=== PATIENT | female | born 1990 | race Caucasian/White ===

== ENCOUNTER 2020-09-14 12:58 | Emergency (ER) | payer OTHER, SELFPAY ==
[2020-09-14 13:10] VITALS: BP 150/86; PULSE 85; RESP 14; TEMP 37.2; O2SAT 99; BMI 28.3
[2020-09-14 13:19] LABS: UTC Strep Screen (Rapid) Negative (Negative)
--- NOTE | 2020-09-14 13:29 | HMH.EDUTC ---
[facility] [place] Clinical Impression: Exposure to COVID-19 virus Sinusitis Qualifiers: Sinusitis location: unspecified location Chronicity: acute Recurrence: non-recurrent Qualified Code(s): J01.90 - Acute sinusitis, unspecified Pharyngitis Qualifiers: Pharyngitis/tonsillitis etiology: unspecified etiology Qualified Code(s): J02.9 - Acute pharyngitis, unspecified Disposition: Home, Self-Care Condition on Discharge: Good Instructions: DI for Sinusitis, Preventing the Spread of Coronavirus Discharge Instructions Additional Instructions: Drink plenty of fluids. Take tylenol for pain or fever. Return if you begin to have difficulty breathing. Follow up with your regular doctor. GO TO THE ER FOR ANY WORSENING SYMPTOMS Prescriptions: Amoxicillin/Potassium Clav [Augmentin 875-125 Tablet] 1 tab PO Q12H 10 Days #20 tab Transmission Status: Received by [id number] Benzonatate [Tessalon Perle 100mg Cap] 100 mg PO TIDP PRN #30 cap PRN Reason: Cough Transmission Status: Received by [id number] Referrals: PCP,No [Primary Care Provider] - Forms: Work/School Release Time of Disposition: 13:43 Medical Decision Making - Medical Records Medical records reviewed: No: I reviewed the patient's medical records. - Peña Inquiry Pt receiving controlled substance: No Vital Signs: 09/14/20 13:10 09/14/20 13:32 Temperature 98.9 F 99 F Temperature Source Oral Pulse Rate 87 Pulse Rate [Right] 85 Respiratory Rate 14 16 Blood Pressure 143/87 H Blood Pressure [Right Arm] 150/86 H Blood Pressure Mean [Right Arm] 107 Blood Pressure Source [Right Arm] Automatic Cuff Blood Pressure Position [Right Arm] Sitting 02 Sat by Pulse Oximetry 99 Oxygen Delivery Method Room Air - Lab Data Lab results reviewed: Yes: I reviewed the patient's lab results. Lab Results 09/14/20 13:18: Strep Scn Rapid Clinic Negative Orders (Tests/Meds): ORDERS Category Date Time Status Strep Screen Confirmation Stat Micro 09/14/20 13:18 Received [facility] [place] - General Stated complaint: sore throat Time Seen by Provider: 09/14/20 13:32 Mode of Arrival: Ambulatory Source of Information: Patient Limitations: No Limitations Description of Symptoms (Recalled from Triage Doc. by RN): pt is having a sore throat, cough, SOSA, low grade fever, and the back of her neck is hurting. 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 HEENT Symptoms (Recalled from RN notes): Yes (sore throat and SOSA) Resp Symptoms (Recalled from RN notes): Yes (dry cough) Skin Symptoms (Recalled from RN notes): No MS Symptoms (Recalled from RN notes): No Functional Status (Recalled from RN notes): na - History of Present Illness Provider Complaint: She is here with complaints of sinus congestion, sore throat, head ache, and feeling bad. She denies any known exposure to covid-19, but she works in a factory around a lot of people. - Related Data Previous Rx's Medication Instructions Recorded Amoxicillin/Potassium Clav 1 tab PO Q12H 10 Days #20 tab 09/14/20 [Augmentin 875-125 Tablet] Benzonatate [Tessalon Perle 100mg 100 mg PO TIDP PRN #30 cap 09/14/20 Cap] Allergies Allergy/AdvReac Type Severity Reaction Status Date / Time No Known Drug Allergies Allergy Unknown -- Verified 09/14/20 13:09 - Worker's Comp Is this a Worker's Comp case?: No [facility] History - Hepatitis A Screen Drug use history?: No High risk sexual behaviors?: No History of sexually transmitted infection?: No Currently employed?: No Childcare worker?: No Do you have indoor plumbing?: No Do you have electricity?: Yes Attestation statement:: This patient has been screened for Hepatitis A risk factors. I have reviewed the patient's past medical history: Yes - Social History Smoking Status: Current every day smoker # Packs/Day (cigarettes): 1 Alcohol Intake: never Occupational Status: employed ROS Obtained: Yes All systems re
[2020-09-14 13:32] VITALS: BP 143/87; PULSE 87; RESP 16; TEMP 37.2
== END 2020-09-14 14:00 | disposition home or self-care (01) ==
PROVIDERS: Emergency Provider Nurse Practitioner Family
DX: Z20.822 Contact with and (suspected) exposure to COVID-19 (principal); J01.90 Acute sinusitis, unspecified; F17.210 Nicotine dependence, cigarettes, uncomplicated
CPT/HCPCS: 87880; 99202; G0463; U0003

== ENCOUNTER 2020-09-26 22:15 | Emergency (ER) | payer OTHER, SELFPAY ==
[2020-09-27 02:16] VITALS: BP 00/00; PULSE 0; RESP 0; TEMP -17.7; TEMP 0
== END 2020-09-27 02:41 | disposition left against medical advice (07) ==
LOC: ER 09-27 02:35
PROVIDERS: Emergency Provider Emergency Medicine
DX: Z53.21 Procedure and treatment not carried out due to patient leaving prior to being seen by health care provider (principal)
CPT/HCPCS: 99211

== ENCOUNTER 2020-09-28 15:05 | Emergency (ER) | payer OTHER, SELFPAY ==
[2020-09-28 15:16] VITALS: BP 154/89; PULSE 98; RESP 20; TEMP 37.2; O2SAT 99; BMI 27.4
--- NOTE | 2020-09-28 15:37 | HMH.EDUTC ---
[facility] [place] Clinical Impression: Sinusitis Qualifiers: Sinusitis location: unspecified location Chronicity: acute Recurrence: non-recurrent Qualified Code(s): J01.90 - Acute sinusitis, unspecified Otitis media Qualifiers: Otitis media type: suppurative Chronicity: acute Laterality: bilateral Recurrence: non-recurrent Spontaneous tympanic membrane rupture: without spontaneous rupture Qualified Code(s): H66.003 - Acute suppurative otitis media without spontaneous rupture of ear drum, bilateral Disposition: Home, Self-Care Condition on Discharge: Good Instructions: Middle Ear Infection, DI for Sinusitis, DI for Vertigo Additional Instructions: Drink plenty of fluids. Take tylenol or ibuprofen for pain or fever. Take the medications as directed. Follow up with your regular doctor. GO TO THE ER FOR ANY WORSENING SYMPTOMS Prescriptions: Meclizine HCl [Antivert 12.5mg tablet] 12.5 mg PO Q6HP PRN #30 tab PRN Reason: Dizziness Transmission Status: Received by [id number] Cefdinir [Omnicef 300mg Capsule] 300 mg PO BID #20 cap Transmission Status: Received by [id number] predniSONE [Prednisone 20mg Tab] 20 mg PO BID 5 Days #10 tab Transmission Status: Received by [id number] Referrals: PCP,No [Primary Care Provider] - Forms: Work/School Release Time of Disposition: 15:49 Medical Decision Making - Medical Records Medical records reviewed: No: I reviewed the patient's medical records. - Peña Inquiry Pt receiving controlled substance: No Vital Signs: 09/28/20 15:16 09/28/20 15:40 Temperature 98.9 F 99 F Temperature Source Oral Pulse Rate 99 H Pulse Rate [Right] 98 H Respiratory Rate 20 19 Blood Pressure 147/92 H Blood Pressure [Right Arm] 154/89 H Blood Pressure Mean [Right Arm] 110 Blood Pressure Source [Right Arm] Automatic Cuff Blood Pressure Position [Right Arm] Sitting 02 Sat by Pulse Oximetry 99 Oxygen Delivery Method Room Air [facility] [place] HPI - General Stated complaint: dizzy possible ear infection Time Seen by Provider: 09/28/20 15:37 Mode of Arrival: Ambulatory Source of Information: Patient Limitations: No Limitations Description of Symptoms (Recalled from Triage Doc. by RN): pt states she was seen a couple weeks ago for a sinus infection and started amoxicillin. she broke out in a rash and had to come off of it. now she complains of vertigo and unable to walk shes so dizzy. she also states she is having R ear pain. HEENT Symptoms (Recalled from RN notes): Yes (R ear pain and dizziness) Resp Symptoms (Recalled from RN notes): No Skin Symptoms (Recalled from RN notes): No MS Symptoms (Recalled from RN notes): No Functional Status (Recalled from RN notes): na - History of Present Illness Provider Complaint: She states that over the past 3 days she has had right ear pain, tenderness behind her right ear and dizziness with certain movements of her head. She states that lying back and raising up triggers her dizziness. - Related Data Previous Rx's Medication Instructions Recorded Cefdinir [Omnicef 300mg Capsule] 300 mg PO BID #20 cap 09/28/20 Meclizine HCl [Antivert 12.5mg 12.5 mg PO Q6HP PRN #30 tab 09/28/20 tablet] predniSONE [Prednisone 20mg 20 mg PO BID 5 Days #10 tab 09/28/20 Tab] Allergies Allergy/AdvReac Type Severity Reaction Status Date / Time No Known Drug Allergies Allergy Unknown -- Verified 09/14/20 13:09 - Worker's Comp Is this a Worker's Comp case?: No [facility] History - Hepatitis A Screen Drug use history?: No High risk sexual behaviors?: No History of sexually transmitted infection?: No Currently employed?: No Childcare worker?: No Do you have indoor plumbing?: Yes Do you have electricity?: Yes Attestation statement:: This patient has been screened for Hepatitis A risk factors. I have reviewed the patient's past medical history: Yes - Social History Smoking Status: Never smoker
[2020-09-28 15:40] VITALS: BP 147/92; PULSE 99; RESP 19; TEMP 37.2
== END 2020-09-28 15:57 | disposition home or self-care (01) ==
PROVIDERS: Emergency Provider Nurse Practitioner Family
DX: J01.90 Acute sinusitis, unspecified (principal); H66.003 Acute suppurative otitis media without spontaneous rupture of ear drum, bilateral
CPT/HCPCS: 99202; G0463

== ENCOUNTER 2022-03-15 15:44 | Emergency (ER) | payer OTHER, SELFPAY ==
--- NOTE | 2022-03-15 16:05 | EXP.UTC ---
Discharge Plan Disposition Patient Disposition: Home, Self-Care Condition: Good Prescriptions Prescriptions: New azithromycin [Zithromax] 250 mg tablet 250 mg PO UD DOSE PK Qty: 6 0RF Rx Instructions: Take two (2) tablets today, then one (1) tablet days #2 thru #5 yiltqmxxrvqldum-iarcofugv-MC [Bromfed DM] 2-30-10 mg/5 mL Syrup 5 ml PO Q6H PRN (Reason: Cough) Qty: 240 0RF ondansetron 4 mg Tablet,Disintegrating 4 mg PO Q8H PRN (Reason: Nausea) Qty: 12 0RF Referrals Follow up/Referrals: Provider,Referral, MD [Primary Care Provider] - See instructions Activity Restrictions/Add. Instructions Additional Instructions/Restrictions: Drink plenty of fluids. Take tylenol or ibuprofen for pain or fever. Take the medications as directed. Follow up with your regular doctor. GO TO THE ER FOR ANY WORSENING SYMPTOMS Quarantine until you know the results of your covid-19 test. Notify your school or workplace of your results and follow their instructions regarding return to work/school. Clinical Impressions Clinical Impression: Pharyngitis, Exposure to COVID-19 virus Stand Alone Forms Stand Alone Forms: Work/School Release Instructions Patient Instructions: Sinusitis, DI for Sinusitis, Coronavirus Disease 2019, Preventing the Spread of Coronavirus Discharge Instructions Discharge ED Provider: Devin Lucio [facility] [place] General Stated complaint: stomach ache and sore throat Time Seen by Provider: 03/15/22 16:12 History of Present Illness Provider Complaint: She states that she has had a sore throat, chills, and she has felt bad for the past 2 days. Related Data Previous Rx's Medication Instructions Recorded azithromycin 250 mg tablet 250 mg PO UD DOSE PK #6 tabs 03/15/22 (Zithromax) kjatocaztgmhpmw-egsyolsynhklhqa-EL 5 ml PO Q6H PRN Cough #240 mL 03/15/22 2 mg-30 mg-10 mg/5 mL oral syrup (Bromfed DM) ondansetron 4 mg disintegrating 4 mg PO Q8H PRN Nausea #12 tabs 03/15/22 tablet Allergies Allergy/AdvReac Type Severity Reaction Status Date / Time amoxicillin Allergy Verified 03/15/22 16:12 PFSH [facility] Social History Smoking Status: Current every day smoker alcohol intake: never current occupational status: employed Travel in the last 8 weeks: None ROS Obtained: Yes All systems reviewed & no additional complaints except as documented Constitutional Constitutional: Reports chills and Reports fever(s) Eyes Eyes: Denies eye discharge ENT Ears, Nose, Mouth, and Throat: Reports as per HPI Cardiovascular Cardiovascular: Denies chest pain Respiratory Respiratory: Denies chest congestion and Reports cough Gastrointestinal Gastrointestingal: Reports nausea; Denies abdominal pain, constipation, cramping, diarrhea or vomiting Musculoskeletal Musculoskeletal: Denies arthralgias Integumentary/Breasts Skin/Breast: Denies rash Neurologic Neurologic: Denies paresthesias Physical Exam General General appearance: alert and in no apparent distress Head Head exam: atraumatic, normocephalic and normal inspection Eye Eye exam: Present normal appearance, PERRL and EOMI ENT ENT exam: Present mucous membranes moist and normal external ear exam Expanded ENT Exam TM/Canal exam: Bilateral TM: erythema and bulging Nose exam: Absent sinus tenderness Mouth exam: Present normal external inspection; Absent drooling Teeth exam: Present normal inspection Throat exam: Present tonsillar erythema, tonsillomegaly and tonsillar exudate Neck Neck exam: Present normal inspection, full ROM and trachea midline; Absent tenderness, meningismus or lymphadenopathy Chest Chest inspection: Present normal inspection and symmetric chest wall rise; Absent tenderness Respiratory Respiratory exam: Present normal lung sounds bilaterally; Absent respiratory distress, wheezes or stridor Cardiovascular Cardiovascular exam: Present regular rate and
[2022-03-15 16:08] VITALS: BP 135/93; PULSE 83; RESP 16; TEMP 37.4; O2SAT 100; BMI 29.9
[2022-03-15 16:19] LABS: UTC Strep Screen (Rapid) Negative (Negative)
[2022-03-15 16:44] VITALS: BP 135/93; PULSE 83; RESP 16; TEMP 37.4
== END 2022-03-15 16:44 | disposition home or self-care (01) ==
PROVIDERS: Emergency Provider Nurse Practitioner Family
DX: Z20.822 Contact with and (suspected) exposure to COVID-19 (principal); J02.9 Acute pharyngitis, unspecified; R10.9 Unspecified abdominal pain
CPT/HCPCS: 87880; 99212; C9803; G0463; U0003; U0005

== ENCOUNTER 2022-05-16 08:47 | Emergency (ER) | payer OTHER, SELFPAY ==
[2022-05-16 09:20] VITALS: BP 133/88; PULSE 86; RESP 20; TEMP 37.1; O2SAT 99; BMI 31.1
[2022-05-16 09:39] LABS: UTC Influenza A Antigen Positive (Negative); UTC Influenza B Antigen Negative (Negative)
[2022-05-16 09:48] VITALS: BP 133/88; PULSE 86; RESP 20; TEMP 37.1; O2SAT 99
--- NOTE | 2022-05-16 10:00 | EXP.UTC ---
Discharge Plan Disposition Patient Disposition: Home, Self-Care Condition: Good Prescriptions Prescriptions: New oseltamivir [Tamiflu] 75 mg capsule 75 mg PO BID 5 Days Qty: 10 0RF No Action azithromycin [Zithromax] 250 mg tablet 250 mg PO UD DOSE PK Qty: 6 0RF Rx Instructions: Take two (2) tablets today, then one (1) tablet days #2 thru #5 iukmtyzokqxvllg-yonuudhqe-IF [Bromfed DM] 2-30-10 mg/5 mL Syrup 5 ml PO Q6H PRN (Reason: Cough) Qty: 240 0RF ondansetron 4 mg Tablet,Disintegrating 4 mg PO Q8H PRN (Reason: Nausea) Qty: 12 0RF Referrals Follow up/Referrals: Provider,Referral, MD [Primary Care Provider] - See instructions Activity Restrictions/Add. Instructions Additional Instructions/Restrictions: Start Tamiflu today if you are going to take it. Discussed risk and possible benefits. Lots of rest Increase Fluids water, Gatorade, powerade, pedialyte,if /toddler/child Alternate Tylenol and / or ibuprofen as discussed for fever, aches, chills Follow up IMMEDIATELY with your family doctor for new or worsening Symptoms OR no noticeable improvement over the next 48-72 hours, 911 for difficulty or breathing You or your child area contagious until no fever, aches, chills for 24 hours with medication for symptoms Help Prevent the spread of influenza: ?Wash your hands often. Use soap and water. Wash your hands after you use the bathroom, change a child's diapers, or sneeze. Wash your hands before you prepare or eat food. Use gel hand cleanser that has 60% alcohol, when soap and water are not available. Do not touch your eyes, nose, or mouth unless you have washed your hands first. Cover your mouth when you sneeze or cough. Cough into a tissue or the bend of your arm. If you use a tissue, throw it away immediately and wash your hands. Clean shared items with a germ-killing book cleaner. Clean table surfaces, doorknobs, and light switches. Do not share towels, silverware, and dishes with people who are sick. Wash bed sheets, towels, silverware, and dishes with soap and water. Wear a mask over your mouth and nose if you are sick. The face mask may help protect others from becoming infected with the flu. Wear the mask when in common areas of your home or if you seek care with a healthcare provider. Stay away from others if you are sick. Stay at home until 24 hours after your fever and symptoms are gone. Clinical Impressions Clinical Impression: Influenza A Stand Alone Forms Stand Alone Forms: Work/School Release Instructions Patient Instructions: DI for Influenza -- Adult, Oseltamivir Discharge ED Provider: Shelley Stahl [facility] [place] HPI General Stated complaint: Fever, chills, dry cough Mode of Arrival: Ambulatory Source of Information: Patient Limitations: No Limitations Time Seen by Provider: 05/16/22 10:03 Description of Symptoms (Recalled from Triage Doc. by RN): PATIENT C/O COLD CHILLS, FEVER, FATIGUE, LOSS OF APPETITE, AND DRY COUGH THAT STARTED SATURDAY NIGHT HEENT Symptoms (Recalled from RN notes): No Resp Symptoms (Recalled from RN notes): Yes Skin Symptoms (Recalled from RN notes): No MS Symptoms (Recalled from RN notes): No Functional Status (Recalled from RN notes): WNL History of Present Illness Provider Complaint: Patient states that she started feeling bad late Saturday night States that she has been having body aches, chills, fatigue fever and dry cough States that she has continued to not feel well so today she came in to get checked Related Data Previous Rx's Medication Instructions Recorded azithromycin 250 mg tablet 250 mg PO UD DOSE PK #6 tabs 03/15/22 (Zithromax) xukgaqxhubxnaji-nubagraphkozweg-HD 5 ml PO Q6H PRN Cough #240 mL 03/15/22 2 mg-30 mg-10 mg/5 mL oral syrup (Bromfed DM) ondansetron 4 mg disintegrating 4
== END 2022-05-16 10:08 | disposition home or self-care (01) ==
PROVIDERS: Emergency Provider Nurse Practitioner
DX: J10.1 Influenza due to other identified influenza virus with other respiratory manifestations (principal); R11.0 Nausea; R50.9 Fever, unspecified; R05.9 Cough, unspecified; R53.82 Chronic fatigue, unspecified; M79.10 Myalgia, unspecified site; D64.9 Anemia, unspecified; F17.210 Nicotine dependence, cigarettes, uncomplicated; Z79.899 Other long term (current) drug therapy; Z88.0 Allergy status to penicillin; Z88.1 Allergy status to other antibiotic agents; Z88.3 Allergy status to other anti-infective agents
CPT/HCPCS: 87804; 99213; G0463

== ENCOUNTER 2022-06-20 16:51 | Emergency (ER) | payer OTHER, SELFPAY ==
[2022-06-20 17:03] VITALS: BP 130/78; PULSE 89; RESP 18; TEMP 37.5; O2SAT 100; BMI 28.3
--- NOTE | 2022-06-20 17:16 | EXP.UTC ---
Discharge Plan Disposition Patient Disposition: Home, Self-Care Condition: Good Prescriptions Prescriptions: New prednisone 5 mg tablets,dose pack See Rx Instructions .ROUTE .COMPLEX Qty: 21 0RF Rx Instructions: take as directed on package instructions hydroxyzine HCl 25 mg tablet 25 mg PO TID PRN (Reason: itching) Qty: 12 0RF No Action oseltamivir [Tamiflu] 75 mg capsule 75 mg PO BID 5 Days Qty: 10 0RF azithromycin [Zithromax] 250 mg tablet 250 mg PO UD DOSE PK Qty: 6 0RF Rx Instructions: Take two (2) tablets today, then one (1) tablet days #2 thru #5 kgtladgdlxkbysc-uiavbdlts-KG [Bromfed DM] 2-30-10 mg/5 mL Syrup 5 ml PO Q6H PRN (Reason: Cough) Qty: 240 0RF ondansetron 4 mg Tablet,Disintegrating 4 mg PO Q8H PRN (Reason: Nausea) Qty: 12 0RF Referrals Follow up/Referrals: Provider,Referral, MD [Primary Care Provider] - See instructions Activity Restrictions/Add. Instructions Additional Instructions/Restrictions: Start oral steriods tomorrow Hydroxyzine as prescribed for itching Follow up with Dermatology or Family Doctor if no improvement and immediately if any worsening of symptoms Oatmeal bathes may help with itching and soothing the rash Look around and make sure that nothing has changed no laundry detergent no soap or lotions Return if needed Straight to ER if any life threatening symptoms Clinical Impressions Clinical Impression: Rash and nonspecific skin eruption Instructions Patient Instructions: DI for Hives, DI for Rash Discharge ED Provider: Shelley Stahl [facility] [place] HPI General Stated complaint: rash Mode of Arrival: Ambulatory Limitations: No Limitations Time Seen by Provider: 06/20/22 17:16 Description of Symptoms (Recalled from Triage Doc. by RN): DIFFUSE RASH ALL OVER BODY STARTED YESTERDAY HEENT Symptoms (Recalled from RN notes): No Resp Symptoms (Recalled from RN notes): No Skin Symptoms (Recalled from RN notes): Yes MS Symptoms (Recalled from RN notes): No Functional Status (Recalled from RN notes): WNL History of Present Illness Provider Complaint: Patient states that she has rash all over her body States that it is on her face, hands, chest, back and now moving to her legs and it very itchy States that she has taken benadryl but not helped much so today when she was still itching she came in Related Data Previous Rx's Medication Instructions Recorded azithromycin 250 mg tablet 250 mg PO UD DOSE PK #6 tabs 03/15/22 (Zithromax) etgewudwgxlcsyt-wnwrdgfmdqzfzyx-DV 5 ml PO Q6H PRN Cough #240 mL 03/15/22 2 mg-30 mg-10 mg/5 mL oral syrup (Bromfed DM) ondansetron 4 mg disintegrating 4 mg PO Q8H PRN Nausea #12 tabs 03/15/22 tablet oseltamivir 75 mg capsule (Tamiflu) 75 mg PO BID 5 days #10 caps 05/16/22 hydroxyzine HCl 25 mg tablet 25 mg PO TID PRN itching #12 tabs 06/20/22 prednisone 5 mg tablets in a dose See Rx Instructions PO .COMPLEX 06/20/22 pack #21 tabs Allergies Allergy/AdvReac Type Severity Reaction Status Date / Time amoxicillin Allergy Verified 03/15/22 16:12 Worker's Comp Is this a Worker's Comp case?: No [facility] Disclaimer: The information contained in this section may have been updated after the patient was seen, as this information can be updated by other users. Medical History (Updated 06/20/22 @ 17:30 by Shelley Stahl APRN) History of anemia Surgical History (Updated 05/16/22 @ 09:36 by Rita Mullen RN) History of section Social History (Updated 05/16/22 @ 09:36 by Rita Mullen RN) Smoking Status: Current every day smoker alcohol intake: never current occupational status: employed Travel in the last 8 weeks: None ROS Obtained: Yes All systems reviewed & no additional complaints except as documented and Yes Systems reviewed as appropriate & no additional complaints except as documented Constitutional Constitutional: Reports system reviewed and no additional
[2022-06-20 17:17] LABS: UTC Strep Screen (Rapid) Negative (Negative)
[2022-06-20 17:57] VITALS: BP 130/78; PULSE 89; RESP 18; TEMP 37.5; O2SAT 100
== END 2022-06-20 18:00 | disposition home or self-care (01) ==
PROVIDERS: Emergency Provider Nurse Practitioner
DX: R21 Rash and other nonspecific skin eruption (principal)
CPT/HCPCS: 87880; 96372; 99212; G0463

== ENCOUNTER 2023-06-17 15:20 | Emergency (ER) | payer OTHER, SELFPAY ==
[2023-06-17 16:45] VITALS: BP 141/90; PULSE 96; RESP 18; TEMP 36.8; O2SAT 98; BMI 32.5
[2023-06-17 17:07] LABS: UTC Influenza A Antigen Negative (Negative); UTC Influenza B Antigen Negative (Negative)
--- NOTE | 2023-06-17 17:07 | EXP.UTC ---
Discharge Plan Disposition Patient Disposition: Home, Self-Care Condition: Good Prescriptions Prescriptions: New zgroogypelrzuzp-qovwclnpx-UH [Bromfed DM] 2-30-10 mg/5 mL Syrup 10 ml PO Q4H PRN (Reason: Cough) Qty: 240 0RF azithromycin [Zithromax Z-Jesus Manuel] 250 mg tablet See Rx Instructions .ROUTE .COMPLEX 5 Days Qty: 6 0RF Rx Instructions: For 250 mg dose pack: take 500 mg today (day 1), then 250 mg for 4 days (days 2-5) methylprednisolone [Medrol (Jesus Manuel)] 4 mg tablets,dose pack See Rx Instructions .Route .COMPLEX 6 Days Qty: 21 0RF Rx Instructions: taper pack; Referrals Follow up/Referrals: Provider,Referral, MD [Primary Care Provider] - See instructions Activity Restrictions/Add. Instructions Additional Instructions/Restrictions: *Monitor Temp, Over the counter Motrin or Tylenol as directed/as needed Tylenol every 4 hours and Motrin every 6 hours (as long as your family doctor has told you that you can take it) for fever or pain. and straight to ER if unable to lower temp less than 101.0 after medication given *Warm salt water gargles may help to soothe the throat *Throat Lozenges? *Warm fluids like tea with honey may help to soothe the throat? *Sleep elevated *Humidifier/Vaporizer *Bromfed may cause drowsiness. Know how it effects you (your child) before driving, caring for small child, or sending your child to school. Not other antihistamines/allergy medications while taking bromfed Take medication as prescribed Follow up IMMEDIATELY for new or worsening symptoms or no Noticeable improvement over the next 48-72 hours. 911 for difficulty breathing or swallowing Clinical Impressions Clinical Impression: Otitis media Qualifiers: Otitis media type: unspecified Laterality: right Qualified Code(s): H66.91 - Otitis media, unspecified, right ear Instructions Patient Instructions: Middle Ear Infection, Cough Discharge ED Provider: Shelley Stahl [facility] General Stated complaint: sore throat, SOSA, cough Mode of Arrival: Ambulatory Source of Information: Patient Limitations: No Limitations Time Seen by Provider: 06/17/23 17:07 Description of Symptoms (Recalled from Triage Doc. by RN): cough, fever, SOSA HEENT Symptoms (Recalled from RN notes): Yes Resp Symptoms (Recalled from RN notes): No Skin Symptoms (Recalled from RN notes): No MS Symptoms (Recalled from RN notes): No Functional Status (Recalled from RN notes): n/a History of Present Illness Provider Complaint: Patient states that she started feeling bad last week and she has continued to feel worse States that she has been having bilateral ear pain, cough, sinus congestion and pressure, fever and headache States that she did cough up a little mucous earlier today so this evening when she was still not feeling any better she came in to get checked Related Data Previous Rx's Medication Instructions Recorded azithromycin 250 mg tablet See Rx Instructions PO .COMPLEX 5 06/17/23 (Zithromax Z-Jesus Manuel) days #6 tabs bzogjierzbankjr-wfrantwxpyxsehw-XN 10 ml PO Q4H PRN Cough #240 mL 06/17/23 2 mg-30 mg-10 mg/5 mL oral syrup (Bromfed DM) methylprednisolone 4 mg tablets in See Rx Instructions .Route 06/17/23 a dose pack (Medrol (Jesus Manuel)) .COMPLEX 6 days #21 tabs Allergies Allergy/AdvReac Type Severity Reaction Status Date / Time amoxicillin Allergy Verified 06/17/23 16:55 Worker's Comp Is this a Worker's Comp case?: No [facility] Disclaimer: The information contained in this section may have been updated after the patient was seen, as this information can be updated by other users. Medical History (Updated 06/17/23 @ 17:15 by Shelley Stahl APRN) History of anemia Surgical History History of section Social History Smoking Status: Current every day smoker alcohol intake: never
[2023-06-17 17:41] VITALS: BP 141/90; PULSE 96; RESP 19; TEMP 36.8; O2SAT 98
== END 2023-06-17 17:25 | disposition home or self-care (01) ==
PROVIDERS: Emergency Provider Nurse Practitioner
DX: H66.91 Otitis media, unspecified, right ear (principal); R07.0 Pain in throat; R51.9 Headache, unspecified; R05.9 Cough, unspecified; R50.9 Fever, unspecified; R09.81 Nasal congestion; F17.210 Nicotine dependence, cigarettes, uncomplicated
CPT/HCPCS: 87804; 99212; 99214; G0463